=== PATIENT | female | born 1970 | race Two or more races ===

== ENCOUNTER 2019-02-09 07:28 | Day surgery (SDC) | payer OTHER ==
[~2019-02-09 07:28] MED LIST: ACETAMINOPHEN 1,000 MG/100 ML BTL IVPB ONE; FAMOTIDINE 20MG TABLET PO ONE; MECLIZINE 25 MG TABLET PO ONE; METOCLOPRAMIDE 10 MG TABLET PO ONE
[2019-02-09] MEDS ORDERED: ONDANSETRON HCL IV 4 MG/2 ML VIAL IVP ONE (07:29)
[2019-02-09] MEDS ORDERED: KETOROLAC 30 MG/ML VIAL IVP ONE (07:29)
[2019-02-09] MEDS ORDERED: GLYCOPYRROLATE 0.2 MG/ML ML IV ONE (07:29)
[2019-02-09] MEDS ORDERED: MIDAZOLAM HCL 2MG/2ML VIAL IV ONE (07:29)
[2019-02-09] MEDS ORDERED: DEXAMETHASONE 4 MG/ML 1ML VIAL IVP ONE (07:29)
[2019-02-09] MEDS ORDERED: ROCURONIUM BROMIDE 50MG/5ML VIAL IV ONE (07:29)
[2019-02-09] MEDS ORDERED: LIDOCAINE 2% MDV (20MG/ML) 20ML VIAL IV ONE (07:29)
[2019-02-09] MEDS ORDERED: SUCCINYLCHOLINE 20 MG/ML 10ML IVP ONE (07:29)
[2019-02-09] MEDS ORDERED: FENTANYL PF 100MCG/2ML VIAL IV ONE (07:29)
[2019-02-09] MEDS ORDERED: SUGAMMADEX SODIUM 200 MG/2 ML VIAL IV ONE (07:29)
[2019-02-09] MEDS ORDERED: PROPOFOL 10 MG/ML VIAL IV ONE (07:29)
[2019-02-09 07:45] LABS: HEMOGLOBIN 12.6 gm/dl (11.6-16.0)
[2019-02-09] MEDS ORDERED: RINGERS SOLUTION,LACTATED 1,000 ML IV ONE ×2 (08:00→10:02)
[2019-02-09] MEDS ORDERED: BUPIVACAINE 0.25% W/EPI MPF 30ML VIAL SQ ONE (09:45)
[2019-02-09] MEDS ORDERED: HYDROCODONE/APAP 5/325MG TABLET PO ONE (10:55)
--- NOTE | 2019-02-10 14:30 | Operative Note ---
DATE OF SURGERY: 02/09/2019 SURGEON: Dez Merida DO PREOPERATIVE DIAGNOSIS: Symptomatic biliary dyskinesia. POSTOPERATIVE DIAGNOSIS: Symptomatic biliary dyskinesia. OPERATION: Laparoscopic cholecystectomy. INDICATION: The patient is a 40-year-old female who is having ongoing right subcostal postprandial pain. She had multiple studies done including endoscopy, ultrasound which was normal, HIDA scan showed an impaired ejection fraction. We did discuss cholecystectomy versus medical management. She desired surgical intervention. Risks include but are not limited to bleeding, infection, ductal injury, possible conversion to open, postoperative bile leak. She understood this fully. PROCEDURE: Thereafter, consent was signed and questions answered. She was taken to the operating room and placed in a supine position. General anesthesia was administered per the department of anesthesia. The patient's abdomen was prepped and draped in the usual sterile fashion. Adequate timeout was performed. She received preoperative DVT prophylaxis as well as Ofirmev. At this time, we did elect to go to above the navel secondary to her infraumbilical laparotomy. Therefore, this area was anesthetized with a total of 10 mL of 0.25% Sensorcaine with epinephrine. A 2 cm incision was made. This was carried down to the anterior rectus fascia. This was incised. Chris clamps were placed on the fascial edges and brought up into the wound. Stay sutures of 0 Vicryl were placed. Posterior rectus sheath was identified and incised. The peritoneal cavity was entered. Adequate pneumoperitoneum was established. The patient was then rotated into reverse Trendelenburg with rotation to left. Additional 5 mm epigastric and two 5 mm right subcostal ports were placed. The gallbladder was retracted in a cephalad and lateral direction opening up the angle of Calot. The hepatocystic triangle was thoroughly dissected out. There was no aberrant anatomy, no posterior ductal structures. The cystic duct and cystic artery were clearly identified. Each one was doubly clipped and cut in a standard fashion. The gallbladder was then taken off the liver bed with RADHA Harmonic. This was placed in an EndoCatch bag and brought out through the umbilical port. Right upper quadrant was rechecked and found to be hemostatic. No bleeding. No bile leaking. No bowel injury noted. The patient was leveled out. The pneumoperitoneum was released. All ports were removed. The fascia was closed with 0 Vicryl in a [id number] fashion. The skin at all ports was closed with 4-0 Vicryl. The patient was taken to the recovery room in stable condition. CARMEN
== END 2019-02-09 11:30 | disposition home or self-care (01) ==
LOC: SUR 07:28
PROVIDERS: ATTEND Surgery
DX: K82.8 Other specified diseases of gallbladder (principal); K76.0 Fatty (change of) liver, not elsewhere classified
CPT/HCPCS: 81025; 85014; 85018; J0330; J1885; J2405; J3490; J7120